=== PATIENT | male | born 1945 | race Caucasian/White ===

== ENCOUNTER 2024-12-11 16:45 | Outpatient (RCR) | payer MEDICARE, SELFPAY | END 2025-01-07 12:42 | disposition home or self-care (01) | PROVIDERS: Visit Provider Surgery | DX: M25.512 Pain in left shoulder (principal); R20.2 Paresthesia of skin; Z51.89 Encounter for other specified aftercare | CPT/HCPCS: 97140; 97161 ==

== ENCOUNTER 2025-07-23 17:42 | Outpatient (CLI) | payer MEDICARE, SELFPAY | END 2025-07-23 17:43 | disposition home or self-care (01) | LOC: AMB 07-27 21:54 | PROVIDERS: PCP Surgery; Visit Provider Student in an Organized Health Care Education/Training Program | DX: S79.912A Unspecified injury of left hip, initial encounter (principal); W00.2XXA Other fall from one level to another due to ice and snow, initial encounter; Y92.007 Garden or yard of unspecified non-institutional (private) residence as the place of occurrence of the external cause | CPT/HCPCS: A0425; A0427 ==

== ENCOUNTER 2025-07-23 18:13 | Emergency (ER) | payer MEDICARE, SELFPAY ==
--- OUTSIDE RECORDS SUMMARY | 2025-07-23 18:15 | XMS_ITS | Clinical Summary ---
Author Organization [facility] Address [address] [place] [id number] Care Team Providers Care Forming Machine Adjuster Name Role Phone Mio More MD Primary Care Provider [phone]- [phone] Allergies Active AllergyReactionsCriticalityNoted XdndMvogxjnnOctobdtYprdnkup56/22/2015 Filipino cheese only Influenz Vir Vac Tv P-Btak9463Fbkwwepxc Of Lkqtli6705/29/2014 Patient reports becoming short of breath 2-3 hours after receiving flu immunization. He took an antihistamine and it resolved. Shellfish Containing ProductsDiarrhea,Nausea And Mergamrg40/22/2015 Scallops only Medications MedicationSigDispense QuantityRefillsLast FilledStart DateEnd DateStatus juymjfyesxn-zyezvltqp-yrf c-mn (GLUCOSAMINE CHONDROITIN MAXSTR) 500-400 mg cap Take 1 Cap by mouth 3 times daily.ctive white petrolatum-mineral oil (EUCERIN) cream Apply topically to affected area(s) 2 times daily if needed for Dry Skin. OTC 90 g Active clobetasol (TEMOVATE) 0.05 % ointment Indications:Trip's diseaseApply twice daily to chest and lower back as needed for inflammation. Don't use on the same spot more than one week continuously. 60 g 5Active omeprazole (PRILOSEC) 20 mg Delayed-Release capsule Indications:Gastroesophageal reflux disease without esophagitisTake 1 Capsule (20 mg) by mouth once daily before a meal. 90 Capsule 5Active rosuvastatin (CRESTOR) 10 mg tablet Indications:Hyperlipidemia, unspecified hyperlipidemia typeTake 1 Tablet (10 mg) by mouth at bedtime. 90 Tablet 5Active tamsulosin 0.4 mg capsule Indications:Benign prostatic hyperplasia with lower urinary tract symptoms, symptom details unspecifiedTake 1 Capsule (0.4 mg) by mouth once daily after a meal. 90 Capsule 5Active clobetasol 0.05% (TEMOVATE 0.05% OINTMENT) 0.05 % ointment Indications:Trip's diseaseApply twice daily to chest and lower back as needed for inflammation. Don't use on the same spot more than one week continuously. 60 g Discontinued(Reorder (E-cancel not sent)) rosuvastatin (CRESTOR) 10 mg tablet Indications:Hyperlipidemia, unspecified hyperlipidemia typeTAKE 1 TABLET BY MOUTH AT BEDTIME 90 Tablet Discontinued(Reorder (E-cancel not sent)) tamsulosin 0.4 mg capsule Indications:Benign prostatic hyperplasia with lower urinary tract symptoms, symptom details unspecifiedTAKE 1 CAPSULE BY MOUTH ONCE DAILY AFTER A MEAL 90 Capsule Discontinued(Reorder (E-cancel not sent)) omeprazole (PRILOSEC) 20 mg Delayed-Release capsule Indications:Gastroesophageal reflux disease without esophagitisTAKE 1 CAPSULE BY MOUTH ONCE DAILY BEFORE A MEAL 90 Capsule Discontinued(Reorder (E-cancel not sent)) Active Problems ProblemNoted DateDiagnosed DateArthritis of right knee3Pulmonary wefsoig7005/06/2021 Overview (05/06/2021): Stable on CT - no further workup recommended 11/2019 Skin ggijsm7505/13/2019 Overview (05/18/2020): Right external ear, BCC Nodular: Mohs 05/13/19 Currie 03/2020, LEFT MORMON, BCC: MOHS 05/18/2020 Rosey Right Helical Rim, infiltrative BCC via frozen section biopsy: Mohs 05/18/2020 Rosey Vill[place]'s lvbdgov2207/06/2015 Overview (07/06/2015): Uses infrequent clobetasol for itching Benign prostatic hyperplasiaGERD (gastroesophageal reflux disease) Resolved Problems ProblemNoted DateDiagnosed DateResolved DateH. pylori dvwwlooyq37/14/2015 06/13/2023 Overview (05/04/2016): Treat with OAC x 10 days Then urea breath test 1 month after therapy complete 04/30/2016: ordered stool sample since patient never did urea breath test NEGATIVE 04/2016 Special screening for malignant neoplasms, colon Encounters DateTypeDepartmentCare VmajUcdoeeidhdu18/17/2025Results Follow-Up [facility] [address] [place] [address] Mio More MD 07/15/2025 1:10 PM CSTOffice Visit [facility] [address] [place] [address] Mio More MD Medicare ANNUAL (subsequent) Visit07/15/20251168Qexrvz09/11/9454Gvtitx76/20/2025 11:30 AM CSTOffice Visit [facility] [address] [place] [address] Steffany Arriaza PA Diarrhea (3-4 days; taking pepto which helps some)06/19/20254019Njaeys02/20/2025 Refill [facility] [address] [place] [address] Mio More MD Refill Request (Rosuvastatin, Tamsulosin, Omeprazole)from Last 3 Months Immunizations ImmunizationAdministration DatesNext DueAmb Influenza, Inact (High-dose) (Flu Clinic Only)05/19/2014COVID-19 vaccine ([employer] 30mcg/0.3mL) ALISSA RODRIGUEZ 09/29/2020,09/08/2020Influenza, High-dose Frmvvbrniyl87/20/2014Influenza, IIV3 (Age >=3 years)05/14/2013Pneumococcal conj 13-Valent (Prevnar 13)01/04/2016RSV, Recombinant ADJ Reconstituted (Arexvy 120MCG/0.5mL)06/07/2023Td (Age >=7 Years) 05/30/2010Tdap11/26/2024Zoster (Shingrix-RZV, recombinant)08/12/2019,06/08/2019 Family History Medical HistoryRelationNameCommentsCancerFatherLungHeart DiseaseFather HypertensionFatherCancer-colonNo Family HistoryPremature CHD (under age 60)No Family HistoryRelationNameStatusCommentsFather Social History Tobacco UseTypesPacks/DayYears UsedDateSmoking Tobacco: NeverSmokeless Tobacco: Never Tobacco Cessation:Counseling Given: Yes Alcohol UseStandard Drinks/StlqOyerposbDgp30 (1 standard drink = 0.6 oz pure alcohol)2-3 glasses of wine/dayPHQ-2AnswerDate RecordedPHQ-2 TOTAL SCORE3 07/15/2025Social ConnectionsAnswerDate RecordedDo you often feel lonely or isolated from those around you?lcohol UseAnswerDate RecordedHow often do you have a drink containing alcohol?How many drinks containing alcohol do you have on a typical day when you are drinking?1 04/17/2025How often do you have five or more drinks on one occasion? Financial Resource StrainAnswerDate RecordedDifficulty of Paying Living Expenses Difficulty of Paying Living ExpensesNot on file10/09/2024Food InsecurityAnswerDate RecordedDo you worry your food will run out before you are able to buy more?Transportation NeedsAnswerDate RecordedDoes lack of transportation keep you from medical appointments?Does lack of transportation keep you from work, meetings or getting things that you need?1 10/09/2024Housing StabilityAnswerDate RecordedWhat is your housing situation today?UtilitiesAnswerDate RecordedDo you have trouble paying for utilities (for example, heat, electricity, water, phone)?Sex and Gender InformationValueDate RecordedSex Assigned at BirthNot on fileLegal Sex Male04/11/2013 10:01 AM CDTGender IdentityNot on fileSexual OrientationNot on fileOccupationIndustryJob Start DateJob End Dateretired [place] presidentNot on fileNot on fileNot on file Last Filed Vital Signs Vital SignReadingTime TakenCommentsBlood Hpnsdhnw565/6907/15/2025 1:13 PM BILINGUAL RESEARCH INTERVIEWER Hggat877807/15/2025 1:13 PM CUEAczbyhdtrsy88.7 ??C (98 ??F)04/07/2020 8:10 AM CDT Respiratory Yalb670501/05/2020 10:16 AM CDTOxygen Nyvnqkrjwg66%07/15/2025 1:13 PM CSTInhaled Oxygen Concentration--Zhysqj86.8 kg (184 lb 11.2 oz)07/15/2025 1:13 PM RVYBebdbp874.6 cm (5' 8.35)07/15/2025 1:13 PM CSTBody Mass Index27.8 07/15/2025 1:13 PM BILINGUAL RESEARCH INTERVIEWER Plan of Treatment Health MaintenanceDue DateLast DoneCommentsCOVID-19 vaccine series ( season)/11/2024, 11/26/2024, 04/19/2024, Additional history exists BMI (ht and wt on same day) for age 18+, 06/21/2024, 06/13/2023, Additional history existsDepression screening for age 12+07/15/2026 07/15/2025, 06/21/2024, 06/13/2023, Additional history existsMedicare Wellness for age 65+, 06/21/2024, 06/13/2023, Additional history existsTetanus /, 05/30/2010Pneumococcal series for age 50+Aowkbwnuc67/06/2016, 07/31/2013 (Completed outside of [facility])Zoster (shingles) series for age 50+Ypwathjqm29/13/2020, 06/08/2019RSV vaccine for adults or vjufhqjxvYzjaenikp39/08/2023Hepatitis B series for 19+Aged OutNo longer eligible based on patient's age to complete this topic Procedures Procedure NamePriorityDate/TimeAssociated DiagnosisCommentsLIPID PANELRoutine 07/15/2025 2:01 PM BILINGUAL RESEARCH INTERVIEWER Hyperlipidemia, unspecified hyperlipidemia type BASIC METABOLIC WLAPRJitklcd80/16/2025 2:01 PM BILINGUAL RESEARCH INTERVIEWER Benign prostatic hyperplasia with lower urinary tract symptoms, symptom details unspecified from Last 3 Months Results * LIPID PANEL (07/15/2025 2:01 PM BILINGUAL RESEARCH INTERVIEWER)ComponentValueRef RangeTest MethodAnalysis TimePerformed AtPathologist SignatureCHOLESTEROL, BUUEV755<200 mg/dL07/16/2025 4:27 AM CSTQUEST ALVKKKCEBYCQANNOJWNTFWKF51<150 mg/dL07/16/2025 4:27 AM BILINGUAL RESEARCH INTERVIEWER [facility] ABWORGJCGRB39> OR = 40 mg/dL07/16/2025 4:27 AM CSTQUEST DIAGNOSTICSNON HDL VEYJGUAPRGY10<130 mg/dL (calc)07/16/2025 4:27 AM CSTQUEST DIAGNOSTICSComment: For patients with diabetes plus 1 major ASCVD risk factor, treating to a non-HDL-C goal of <100 mg/dL (LDL-C of <70 mg/dL) is considered a therapeutic option. CHOL/HDLC RATIO2.2<5.0 (calc)07/16/2025 4:27 AM CSTQUEST DIAGNOSTICS LDL-DBIELJQZWHB15iz/dL (calc)07/16/2025 4:27 AM CSTQUEST DIAGNOSTICSComment: Reference range: <100 Desirable range <100 mg/dL for primary prevention; <70 mg/dL for patients with CHD or diabetic patients with > or = 2 CHD risk factors. LDL-C is now calculated using the Regan calculation, which is a validated novel method providing better accuracy than the Friedewald equation in the estimation of LDL-C. Jh SS et al. MARILY. 2013;310(19): 9011-6689 (http://education.Results Scorecard.Brainjuicer/faq/HDB070) Specimen (Source)Anatomical Location / LateralityCollection Method / Volume Collection TimeReceived TimeBloodBLOOD SPECIMEN / UnknownQuest Collect / Unknown 07/15/2025 2:01 PM CST07/15/2025 2:01 PM BILINGUAL RESEARCH INTERVIEWER Narrative Authorizing ProviderResult TypeResult StatusKyle Brian More MDCHEMISTRYFinal ResultPerforming OrganizationAddressCity/State/ZIP CodePhone Number [facility] [address] [place] [address], [place] [phone] * (ABNORMAL) BASIC METABOLIC PANEL (07/15/2025 2:01 PM BILINGUAL RESEARCH INTERVIEWER)ComponentValueRef RangeTest MethodAnalysis TimePerformed AtPathologist HubfycooqYHPXVB130350 - 146 mmol/L109/16/2024 4:27 AM CSTQUEST DIAGNOSTICSPOTASSIUM4.23.5 - 5.3 mmol/L 07/16/2025 4:27 AM CSTQUEST DIAGNOSTICSCARBON RQZGBKK8421 - 32 mmol/L 07/16/2025 4:27 AM CSTQUEST DNEMTRDCSDDCCKTXDD665(H)65 - 99 mg/dL07/16/2025 4:27 AM CSTQUEST DIAGNOSTICSComment: ? Fasting reference interval For someone without known diabetes, a glucose value between 100 and 125 mg/dL is consistent with prediabetes and should be confirmed with a follow-up test. CALCIUM9.48.6 - 10.3 mg/dL07/16/2025 4:27 AM CSTQUEST DIAGNOSTICSCREATININE0.77 0.70 - 1.22 mg/dL07/16/2025 4:27 AM CSTQUEST DIAGNOSTICSBUN/CREATININE RATIOSEE NOTE:6 - 22 (calc)07/16/2025 4:27 AM CSTQUEST DIAGNOSTICSComment: ?? Not Reported: BUN and Creatinine are within ?? reference range. ? EGFR90> OR = 60 mL/min/1.60v37907/16/2025 4:27 AM CSTQUEST DIAGNOSTICSUREA NITROGEN (BUN)247 - 25 mg/dL07/16/2025 4:27 AM CSTQUEST DIAGNOSTICSELECTROLYTE BALANCE6(L)7 - 17 mmol/L (calc)07/16/2025 4:27 AM CSTQUEST DIAGNOSTICSCHLORIDE 48426 - 110 mmol/L109/16/2024 4:27 AM CSTQUEST DIAGNOSTICSSpecimen (Source) Anatomical Location / LateralityCollection Method / VolumeCollection Time Received TimeBloodBLOOD SPECIMEN / UnknownQuest Collect / Pahmimo76/ 2:01 PM CST07/15/2025 2:01 PM BILINGUAL RESEARCH INTERVIEWER Narrative Authorizing ProviderResult TypeResult StatusMio More [facility] BROKEN ARROWHEMISTRYFinal ResultPerforming OrganizationAddressCity/State/ZIP CodePhone Number [facility] [address] [place] [address], [place] [phone] from Last 3 Months Insurance * Guarantor: Henrique Stanton TypeRelation to PatientDate of BirthPhone Billing YarcantFnllezByjo23/18/1946 [address] [place] [address] Advance Directives TypeDate RecordedPatient RepresentativeExplanationHealthcare Directive01/15/2018 11:04 AMHEALTHCARE DIRECTIVE, [facility], 12/13/16 * Full Code (Latest Code Status on File) Date ActivatedDate InactivatedComments11/26/2014 8:03 AM11/27/2014 2:26 AM Care Teams Team MemberRelationshipSpecialtyStart DateEnd Date Mio More MD [address] [place] [address] PCP - GeneralFamily Izpjmass86/14/13
[2025-07-23 18:21] VITALS: BP 187/77; PULSE 58; RESP 18; TEMP 37; O2SAT 95; BMI 26.6
--- NOTE | 2025-07-23 18:30 | ED_ITS ---
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 Was walking to get the mail and slipped on ice. Landed on his L side. No head strike. Hx of L STACI in 2004. Declined IV and pain meds for EMS. No blood thinners. 79-year-old man presenting to the emergency department via EMS. Was apparently walking to the mail today slipped on the ice last hard on his left hip. Denies neck or new back pain. No abdominal pain. Denies striking his head. Just had so much pain or there was an M ability to move his left leg following his fall. He managed to drag himself to the middle of the street where he thought he might be able to get some traction to get up on the ice. Ultimately was assisted by EMS. 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 Related Data Home Medications ?Medication ?Instructions ?Recorded ?Confirmed clobetasol 0.05 % topical ointment 1 applic topical BI D 07/23/25 08/05/25 omeprazole 20 mg capsule,delayed 20 mg PO DAILY 08/05/25 release rosuvastatin 10 mg tablet 10 mg PO QPM 07/23/25 tamsulosin 0.4 mg capsule PO 07/23/25 08/05/25 Allergies Allergy/AdvReac Type Severity Reaction Status Date / Time Influenza Virus Vaccines Allergy shortness Verified 08/05/25 09:48 of breath scallops Allergy Verified 08/05/25 09:48 Review of Systems Status of ROS: Reports: 6 or more systems reviewed and unremarkable except as noted in History and below [facility] Medical History (Updated 08/07/25 @ 00:01 by Background Daemon) H. 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 Talkative. Hard of hearing with hearing aids. Breathing easily. Head is atraumatic. Neck is supple. Back nontender. Heart in slower but regular rate. Abdomen is soft nontender. He is able to flex his left hip in question now. Is tender to palpation just below the left greater trochanter. There are to inch and half long linear fine quiroz consistent I think with impact. No pain or instability anterior compression/palpation of the iliac crest. Const: Vital Signs, click to edit/add: Vital Signs - 24 hr 07/23/25 18:21 Temperature 98.6 F Pulse Rate [Pulse Oximeter] 58 L Respiratory Rate 18 Blood Pressure [Le ft Upper Arm] 187/77 H Pulse Oximetry 95 Oxygen Delivery Me thod Room Air Documenting provider has reviewed patient's vital signs: yes Course Vital Signs Vital signs: Initial Vital Signs Temperature 98.6 F 07/23/25 18:21 Temperature Source Temporal Artery Scan 07/23/25 18:21 Pulse Rate 58 L 07/23/25 18:21 Pulse Rhythm Regular 07/23/25 18:21 Pulse Strength 3+ Normal 07/23/25 18:21 Respiratory Rate 18 07/23/25 18:21 Blood Pressure 187/77 H 07/23/25 18:21 Blood Pressure Mean 113 H 07/23/25 18:21 Blood Pressure Position Semi-Fowlers 07/23/25 18:21 Pulse Oximetry 95 07/23/25 18:21 Oxygen Delivery Method Room Air 07/23/25 18:21 Vital Signs Temperature 98.6 F 07/23/25 18:21 Pulse Rate 58 L 07/23/25 18:21 Respiratory Rate 18 07/23/25 18:21 Blood Pressure 187/77 H 07/23/25 18:21 Pulse Oximetry 95 07/23/25 18:21 Oxygen Delivery Method Room Air 07/23/25 18:21 Temperature 98.6 F 07/23/25 18:21 Pulse Rate 58 L 07/23/25 18:21 Respiratory Rate 18 07/23/25 18:21 Blood Pressure 187/77 H 07/23/25 18:21 Pulse Oximetry 95 07/23/25 18:21 Oxygen Delivery Method Room Air 07/23/25 18:21 Medications Administered Medications: Discontinued Medications Generic Name Dose Route Start Last Admin Trade Name Freq PRN Reason Stop Dose Admin Hydrocodone Bitart/Acetaminophen 2 tab 07/23/25 20:01 07/23/25 20:05 Hydrocodone-Acetamin 5-325 Mg 1 Tab PO 07/23/25 20:02 2 tab ONCE ONE Administration Medical Decision Making MDM Narrative Medical decision making narrative: Does not appear to have sustained significant injury beyond his left hip. Will need to x-ray this hip and pelvis to verify stability of operative hardware; periprosthetic fracture. Possible pelvic fracture as well. This may just be a bruise and IT/greater trochanter irritation as well. He has declined pain med occasion at this point noting that without movement is pretty comfortable. X-ray of the left hip and pelvis independently reviewed by me does show defect in the cortex at the greater trochanter extending somewhat toward the hardware. Hardware actually does not look to have loosened without any lucency adjacent. Discuss these findings with Mr. Stanton and his spouse. Initially was accompanied also by daughter. He is anticipating going home. Did discuss this case with Orthopedics. Recommending weight-bearing as tolerated and close follow-up with imaging in a week. With attempt to mobilize nursing is noting that this is just not going to be possible. Spouse wanting him to stay and Mr. Stanton wants to go. So I have ordered 2 tabs of Pledger and reassess. Radiology over-read of images below Indication: .FALL ON ICE ONTO LEFT HIP Technique: Three views left hip and pelvis. Comparison: None. Findings/Impression: Subtle linear lucency along the lateral aspect of the left greater trochanter which may be secondary to artifact/summation versus a nondisplaced fracture. Difficult to assess whether this extends towards the patient`s arthroplasty. No arthroplasty associated malfunction. Joint spaces are maintained. Bony mineralization is age appropriate. Dictated by Jigar Pereira MD @ 07/23/2025 7:07:13 PM Ultimately is able to mobilize along with walker. Does not appear to be too sedate See patient discharge plan for further discussion Recommendations are to be seen at an Orthopedics in a week for reimaging. I did speak with them tonight and they are aware of your case. Please call [phone] to schedule follow-up appointment. Bear weight as tolerated at this point. Use the loaner walker and then see prescription for replacement if you do not locate another one. Since we are out of Pledger, prescribing Percocet from [facility]. Use cautiously due to potential sedative affects. Can take ibuprofen otherwise. Each tablet of Percocet contains 325 mg of acetaminophen. Can take up to 1000 mg of acetaminophen per dose. Medical Records Medical records reviewed: Yes I reviewed the patient's medical records Discharge Plan Discharge Clinical Impression: Judy-prosthetic fracture around prosthetic hip Patient Disposition: Home w/ Parent or Adult Condition: Improved Additional Instructions: Recommendations are to be seen at an Orthopedics in a week for reimaging. I did speak with them tonnicki and they are aware of your case. Please call [phone] to schedule follow-up appointment. Bear weight as tolerated at this point. Use the loaner walker and then see prescription for replacement if you do not locate another one. Since we are out of Pledger, prescribing Percocet from [facility]. Use cautiously due to potential sedative affects. Can take ibuprofen otherwise. Each tablet of Percocet contains 325 mg of acetaminophen. Can take up to 1000 mg of acetaminophen per dose. Prescriptions: No Action tamsulosin 0.4 mg capsule PO omeprazole 20 mg capsule,delayed release(DR/EC) 20 mg PO DAILY clobetasol 0.05 % ointment 1 applic topical BID rosuvastatin 10 mg tablet 10 mg PO QPM Follow Up/Referrals: Provider,Not a Local [Primary Care Provider, Family Practice] Stand Alone Forms: [employer] Info Instructions
--- NOTE | 2025-07-23 18:39 | CRLHL7_ITS ---
For Patients: As a result of the Cures Act, medical imaging exams and procedure reports are released immediately into your electronic medical record. You may view this report before your referring provider. If you have questions, please contact your health care provider. Indication: .FALL ON ICE ONTO LEFT HIP Technique: Three views left hip and pelvis. Comparison: None. Findings/Impression: Subtle linear lucency along the lateral aspect of the left greater trochanter which may be secondary to artifact/summation versus a nondisplaced fracture. Difficult to assess whether this extends towards the patient`s arthroplasty. No arthroplasty associated malfunction. Joint spaces are maintained. Bony mineralization is age appropriate. Dictated by Jigar Pereira MD @ 07/23/2025 7:07:13 PM (Electronically Signed)
[2025-07-23] MEDS: HYDROCODONE-ACETAMIN 5-325 MG 1 TAB 2 TAB PO (20:05)
== END 2025-07-23 20:46 | disposition home or self-care (01) ==
PROVIDERS: Emergency Provider Family Medicine
DX: S72.112A Displaced fracture of greater trochanter of left femur, initial encounter for closed fracture (principal); M97.02XA Periprosthetic fracture around internal prosthetic left hip joint, initial encounter; W00.0XXA Fall on same level due to ice and snow, initial encounter; Y93.01 Activity, walking, marching and hiking; Y92.008 Other place in unspecified non-institutional (private) residence as the place of occurrence of the external cause
CPT/HCPCS: 73502; 99283; 99284; A9270

== ENCOUNTER 2025-07-30 13:55 | Outpatient (CLI) | payer MEDICARE, SELFPAY ==
--- NOTE | 2025-07-30 14:00 | CRLHL7_ITS ---
For Patients: As a result of the Century Cures Act, medical imaging exams and procedure reports are released immediately into your electronic medical record. You may view this report before your referring provider. If you have questions, please contact your health care provider. EXAM: CT OF THE LEFT HIP, WITHOUT CONTRAST CLINICAL INDICATION: Periprosthetic fracture. COMPARISON STUDIES: 07/30/2025 and 07/23/2025 radiographs. TECHNICAL: Non-contrast CT of the pelvis with axial images. Sagittal oblique and coronal oblique reformatted images of the left hip created. FINDINGS: LEFT HIP AND OSSEOUS STRUCTURES: Left STACI. There is a lobular area of lucency in the intratrochanteric region adjacent to the proximal femoral component which involves the majority of the intramedullary width. There is slight sparing posteriorly. The area of lucency measures up to 3.2 cm CC. Findings consistent with a focal area of osteolysis. There is a comminuted acute fracture adjacent to the osteolysis anteriorly and laterally. No areas of osteolysis adjacent to the acetabular component. No hip joint effusion or juxta-articular fluid collection. No worrisome osseous lesion. OTHER JOINT SPACES: Right Hip: Moderate to advanced degenerative changes. SI Joints: Moderate to advanced degenerative changes bilaterally with bridging anterior osteophytes. Lumbar Spine: Degenerative changes in the lumbosacral facets. MUSCLES AND TENDONS: No intramuscular mass or hematoma. No muscle atrophy. No retracted tendon tear. SOFT TISSUES: No subcutaneous edema, fluid collection or hematoma. INTRAPELVIC CONTENTS: No free fluid or hematoma. Bilateral fat containing inguinal hernias. Ectasia of the distal abdominal aorta and common iliac arteries. IMPRESSION: 1. Left STACI. Focal area of osteolysis adjacent to the proximal femoral component with acute fracture. 2. Degenerative changes in the right hip, SI joints and lumbosacral facets. 3. Bilateral fat containing inguinal hernias. 4. Ectasia of the distal abdominal aorta and common iliac arteries. Please note that all CT scans at this facility use dose modulation, iterative reconstruction, and/or weight-based dosing when appropriate to reduce radiation dose to as low as reasonably achievable. Dictated by Micah Urbano MD @ 08/01/2025 9:20:02 AM (Electronically Signed)
== END 2025-07-30 13:56 | disposition home or self-care (01) ==
LOC: CT 13:56
PROVIDERS: PCP Surgery; Visit Provider Physician Assistant Surgical
DX: M97.8XXA Periprosthetic fracture around other internal prosthetic joint, initial encounter (principal); K40.90 Unilateral inguinal hernia, without obstruction or gangrene, not specified as recurrent; I77.811 Abdominal aortic ectasia; Z96.649 Presence of unspecified artificial hip joint
CPT/HCPCS: 73700